=== PATIENT | female | born 1990 | race Caucasian/White ===

== ENCOUNTER 2017-03-01 20:15 | Emergency (ER) | payer OTHER ==
[2017-03-01] MEDS ORDERED: Ondansetron INJ* 2 MG/ML VIAL IV ONE (21:30)
[2017-03-01] MEDS ORDERED: Morphine INJ* 4 MG/ML 1 ML SYRINGE IV ONE (21:30)
[2017-03-01] MEDS ORDERED: NS 0.9% 1000 ML* 1,000 ML IV ONE (21:30)
[2017-03-01 21:56] LABS: Hematocrit 35 % (35-47); Hemoglobin 11.2 g/dl (12.0-16.0); Mean Corpuscular HGB Conc 32 g/dl (31-36); Mean Corpuscular Hemoglobin 25 pg (27-31); Mean Corpuscular Volume 78 fL (80-97); Mean Platelet Volume 8 um3 (7.4-10.4); Red Blood Count 4.43 10^6/ul (4.0-5.4); Red Cell Distribution Width 14 % (10.5-15); White Blood Count 5.3 10^3/ul (3.5-10.8)
[2017-03-01 22:13] LABS: Albumin 3.9 g/dL (3.2-5.2); BUN/Creatinine Ratio 17.4 (8-20); C Reactive Protein 4.17 mg/L (< 5.00); EGFR African American 100.3 (>60); Globulin 2.6 g/dL (2-4); Potassium 3.9 mmol/L (3.5-5.0); Total Bilirubin 0.3 mg/dL (0.2-1.0); Total Protein 6.5 g/dL (6.4-8.9)
[2017-03-01 23:33] LABS: Urine Bacteria Absent (Absent); Urine Bilirubin Negative (Negative); Urine Glucose Negative (Negative); Urine Nitrite Negative (Negative)
[2017-03-01] MEDS ORDERED: oxyCODONE/Acetamin 5/325 MG* TAB PO ONE (23:38)
[2017-03-02 00:03] VITALS: BP 143/74
--- NOTE | 2017-03-02 05:24 | ED ---
Moustapha Krishna Rebecca, scribed for Abraham May MD on 03/01/17 at 2129 . Abdominal Pain/Female - HPI Summary HPI Summary: Pt is a 27 y/o F who presents to ED c/o RUQ abd pain. Pain began tonight at 1700 and is currently moderate, previously severe, waxing and waning in intensity. Pain is in the RUQ with radiation to the back. Sx aggravated by deep breaths, alleviated by nothing. Additionally c/o nausea and diaphoresis secondary to pain. Denies fever, chills, dysuria, dark urine and vomiting. FHx gallbladder disease (mother had an attack after ). PSHx - January 15, 2017 and she is currently breast feeding. Pt additionally experienced an episode this morning at 0330, waking her up from sleep and had last eaten at 2100 prior to the episode. No similar episodes during . - History of Current Complaint Chief Complaint: EDAbdPain Stated Complaint: POSS GALLBLADDER ATTACK Hx Obtained From: Patient Hx Last Menstrual Period: 07/23/14 Onset/Duration: Lasting Hours - Since 1700, Still Present Severity Initially: Severe - 10/10 Severity Currently: Moderate Location: Discrete At: RUQ Radiates: Yes Radiates to: Back Aggravating Factor(s): Deep Breaths Alleviating Factor(s): Nothing Associated Signs and Symptoms: Positive: Diaphoresis - secondary to pain, Nausea. Negative: Fever, Urinary Symptoms, Vomiting Allergies/Adverse Reactions: Allergies Allergy/AdvReac Type Severity Reaction Status Date / Time Cefaclor [From [facility]] Allergy Hives Verified 03/01/17 21:10 PMH/Surg Hx/FS Hx/Imm Hx Endocrine/Hematology History: Denies: Hx Diabetes, Hx Thyroid Disease Cardiovascular History: Denies: Hx Hypertension Respiratory History: Denies: Hx Asthma, Hx Chronic Obstructive Pulmonary Disease (COPD) GI History: Denies: Hx Ulcer - Surgical History Surgery Procedure, Year, and Place: tear duct as a child - Immunization History Date of Tetanus Vaccine: unk Date of Influenza Vaccine: none Infectious Disease History: No Infectious Disease History: Denies: Hx Hepatitis, Hx Human Immunodeficiency Virus (HIV), Traveled Outside the [place] in Last 30 Days - Family History Known Family History: Positive: Hypertension, Other - Gallbladder disease - Social History Alcohol Use: Rare Substance Use Type: Reports: None Smoking Status (MU): Never Smoked Tobacco Review of Systems Positive: Skin Diaphoresis - secondary to pain. Negative: Fever, Chills Positive: Abdominal Pain - RUQ, Nausea. Negative: Vomiting Positive: other - NEGATIVE: dark urine. Negative: dysuria All Other Systems Reviewed And Are Negative: Yes Physical Exam - Summary Physical Exam Summary: The patient is well-nourished in no acute distress and in no acute pain. The skin is warm and dry and skin color reflects adequate perfusion. HEENT: The head is normocephalic and atraumatic. The pupils are equal and reactive. The conjunctivae are clear and without drainage. Sclera are clear. Nares are patent and without drainage. Mouth reveals moist mucous membranes and the throat is without erythema and exudate. The external ears are intact. The ear canals are patent and without drainage. The tympanic membranes are intact. Neck is supple with full range of motion and non-tender. There are no carotid bruits. There is no neck vein distension. Respiratory: Chest is non-tender. Lungs are clear to auscultation and breath sounds are symmetrical and equal. Cardiovascular: Hear is regular rate and rhythm. There is no murmur or rub auscultated. There is no peripheral edema and pulses are symmetrical and equal. Abdomen: The abdomen is obese and soft with RUQ pain. There is no epigastric, RLQ or LLQ pain. There are normal bowel sounds heard in all four quadrants and there is no organomegaly palpated. Musculoskeletal: Some questionable R CVA tenderness. Extremities are non-tender with full range of motion. There is good capillary refill. There is no peripheral edema or calf tenderness elicited. Neurological: Patient is alert and oriented to person, place and time. The patient has symmetrical motor strength in all four extremities. Psychiatric: The patient has an appropriate affect and does not exhibit any anxiety or depression. Triage Information Reviewed: Yes Vital Signs On Initial Exam: Initial Vitals Temp Pulse Resp BP Pulse Ox 99.1 F 66 18 170/93 98 03/01/17 20:26 03/01/17 20:26 03/01/17 20:26 03/01/17 20:26 03/01/17 20:26 Vital Signs Reviewed: Yes - Alonzo Coma Scale Coma Scale Total: 15 Diagnostics - Vital Signs Vital Signs Temp Pulse Resp BP Pulse Ox 03/01/17 21:07 99.4 F 60 16 151/81 96 03/01/17 20:26 99.1 F 66 18 170/93 98 - Laboratory Lab Results: Lab Results 03/01/17 03/01/17 03/01/17 Range/Units 21:45 21:45 21:45 WBC 5.3 (3.5-10.8) 10^3/ul RBC 4.43 (4.0-5.4) 10^6/ul Hgb 11.2 L (12.0-16.0) g/dl Hct 35 (35-47) % MCV 78 L (80-97) fL MCH 25 L (27-31) pg MCHC 32 (31-36) g/dl RDW 14 (10.5-15) % Plt Count 236 (150-450) 10^3/ul MPV 8 (7.4-10.4) um3 Neut % (Auto) 58.6 (38-83) % Lymph % (Auto) 31.0 (25-47) % Shannon % (Auto) 7.2 (1-9) % Eos % (Auto) 2.1 (0-6) % Baso % (Auto) 1.1 (0-2) % Absolute Neuts (auto) 3.1 (1.5-7.7) 10^3/ul Absolute Lymphs (auto) 1.6 (1.0-4.8) 10^3/ul Absolute Monos (auto) 0.4 (0-0.8) 10^3/ul Absolute Eos (auto) 0.1 (0-0.6) 10^3/ul Absolute Basos (auto) 0.1 (0-0.2) 10^3/ul Absolute Nucleated RBC 0.01 10^3/ul Nucleated RBC % 0.1 Sodium 134 (133-145) mmol/L Potassium 3.9 (3.5-5.0) mmol/L Chloride 103 (101-111) mmol/L Carbon Dioxide 25 (22-32) mmol/L Anion Gap 6 (2-11) mmol/L BUN 15 (6-24) mg/dL Creatinine 0.86 (0.51-0.95) mg/dL Est GFR ( Amer) 100.3 (>60) Est GFR (Non-Af Amer) 78.0 (>60) BUN/Creatinine Ratio 17.4 (8-20) Glucose 113 H (70-100) mg/dL Lactic Acid 1.2 (0.5-2.0) mmol/L Calcium 9.0 (8.6-10.3) mg/dL Total Bilirubin 0.30 (0.2-1.0) mg/dL AST 23 (13-39) U/L ALT 28 (7-52) U/L Alkaline Phosphatase 52 (34-104) U/L C-Reactive Protein 4.17 (< 5.00) mg/L Total Protein 6.5 (6.4-8.9) g/dL Albumin 3.9 (3.2-5.2) g/dL Globulin 2.6 (2-4) g/dL Albumin/Globulin Ratio 1.5 (1-3) Amylase 19 L (29-103) U/L Lipase 17 (11.0-82.0) U/L Urine Color Urine Appearance Urine pH (5-9) Ur Specific [place] (1.010-1.030) Urine Protein (Negative) Urine Ketones (Negative) Urine Blood (Negative) Urine Nitrate (Negative) Urine Bilirubin (Negative) Urine Urobilinogen (Negative) Ur Leukocyte Esterase (Negative) Urine WBC (Auto) (Absent) Urine RBC (Auto) (Absent) Ur Squamous Epith Cells (Absent) Urine Bacteria (Absent) Urine Glucose (Negative) 03/01/ Range/Units 23:15 WBC (3.5-10.8) 10^3/ul RBC (4.0-5.4) 10^6/ul Hgb (12.0-16.0) g/dl Hct (35-47) % MCV (80-97) fL MCH (27-31) pg MCHC (31-36) g/dl RDW (10.5-15) % Plt Count (150-450) 10^3/ul MPV (7.4-10.4) um3 Neut % (Auto) (38-83) % Lymph % (Auto) (25-47) % Shannon % (Auto) (1-9) % Eos % (Auto) (0-6) % Baso % (Auto) (0-2) % Absolute Neuts (auto) (1.5-7.7) 10^3/ul Absolute Lymphs (auto) (1.0-4.8) 10^3/ul Absolute Monos (auto) (0-0.8) 10^3/ul Absolute Eos (auto) (0-0.6) 10^3/ul Absolute Basos (auto) (0-0.2) 10^3/ul Absolute Nucleated RBC 10^3/ul Nucleated RBC % Sodium (133-145) mmol/L Potassium (3.5-5.0) mmol/L Chloride (101-111) mmol/L Carbon Dioxide (22-32) mmol/L Anion Gap (2-11) mmol/L BUN (6-24) mg/dL Creatinine (0.51-0.95) mg/dL Est GFR ( Amer) (>60) Est GFR (Non-Af Amer) (>60) BUN/Creatinine Ratio (8-20) Glucose (70-100) mg/dL Lactic Acid (0.5-2.0) mmol/L Calcium (8.6-10.3) mg/dL Total Bilirubin (0.2-1.0) mg/dL AST (13-39) U/L ALT (7-52) U/L Alkaline Phosphatase (34-104) U/L C-Reactive Protein (< 5.00) mg/L Total Protein (6.4-8.9) g/dL Albumin (3.2-5.2) g/dL Globulin (2-4) g/dL Albumin/Globulin Ratio (1-3) Amylase (29-103) U/L Lipase (11.0-82.0) U/L Urine Color Yellow Urine Appearance Clear Urine pH 6.0 (5-9) Ur Specific [place] 1.008 L (1.010-1.030) Urine Protein Negative (Negative) Urine Ketones Negative (Negative) Urine Blood 1+ H (Negative) Urine Nitrate Negative (Negative) Urine Bilirubin Negative (Negative) Urine Urobilinogen Negative (Negative) Ur Leukocyte Esterase 2+ H (Negative) Urine WBC (Auto) 1+(6-10/hpf) H (Absent) Urine RBC (Auto) Trace(0-2/hpf) (Absent) Ur Squamous Epith Cells Present H (Absent) Urine Bacteria Absent (Absent) Urine Glucose Negative (Negative) Result Diagrams: 03/01/17 21:45 03/01/17 21:45 Lab Statement: Any lab studies that have been ordered have been reviewed, and results considered in the medical decision making process. - Ultrasound No standard instances Ultrasound Interpretation: Positive (See Comments) - US abdomen: Cholelithiasis without acute cholecystitis. Hepatomegaly. Coarse liver echotexture, probably steatosis. unremarkable right kidney and visualized aorta and pancreas. No biliary dilatation. Ultrasound Interpretation Completed By: Radiologist Re-Evaluation - Re-Evaluation First Eval Re-Evaluation Time: 23:30 Change: Improved Comment: Discussed US and lab results with the pt. She is feeling better. Abdominal Pain Fem Course/Dx - Course Course Of Treatment: Pt is a 27 y/o F who presents to ED c/o RUQ abd pain. Pain began tonight at 1700 and is currently moderate, previously severe, waxing and waning in intensity. Pain is in the RUQ with radiation to the back. Sx aggravated by deep breaths, alleviated by nothing. Additionally c/o nausea and diaphoresis secondary to pain. Denies fever, chills, dysuria, dark urine and vomiting. FHx gallbladder disease (mother had an attack after ). PSHx C -section - January 15, 2017 and she is currently breast feeding. Pt additionally experienced an episode this morning at 0330, waking her up from sleep and had last eaten at 2100 prior to the episode. No similar episodes during . US abdomen reveals: Cholelithiasis without acute cholecystitis. Hepatomegaly. Coarse liver echotexture, probably steatosis. unremarkable right kidney and visualized aorta and pancreas. No biliary dilatation. In the ED course, pt was administered fluids, Morphine, Zofran and Percocet 5/325 which improved sx. She will be D/C to home with Dx of cholelithiasis, Rx for Percocet 5/325 and a follow up with Dr. Shaikh this week. She understands and agrees. Elevated BP noted and advised to f/u with PCP. - Diagnoses Differential Diagnosis: Positive: Gall Bladder Disease, Urinary Tract Infection Provider Diagnoses: Cholelithiasis Discharge - Discharge Plan Condition: Stable Disposition: HOME Prescriptions: oxyCODONE/Acetamin 5/325 MG* [Percocet 5/325 TAB*] 1 tab PO Q6H PRN #16 tab MDD 4 PRN Reason: pain Patient Education Materials: Gallstones (ED) Referrals: Morgan Shaikh MD [Medical Doctor] - (Follow up with Dr. Shaikh this week. ) The documentation as recorded by the Moustapha lacy Rebecca accurately reflects the service I personally performed and the decisions made by me, Abraham May MD.
--- NOTE | 2017-03-02 07:44 | RAD ---
HISTORY: Right upper quadrant and back pain COMPARISONS: None TECHNIQUE: Multiple transverse and longitudinal ultrasound images were obtained of the right upper quadrant of the abdomen using grayscale and color Doppler imaging. FINDINGS: LIVER: The liver is diffusely echogenic and coarse in echotexture, with decreased acoustic transmission. The liver measures 22 cm in long axis.. There is normal hepatopedal flow of the portal vein on Doppler imaging. BILIARY TREE: There is no intrahepatic or extrahepatic biliary dilatation. The common duct measures 0.5 cm. GALLBLADDER: The gallbladder is distended. Multiple shadowing echogenic foci consistent with gallstones are noted. There is no gallbladder wall thickening, pericholecystic fluid, or sonographic Aiken sign. PANCREAS: The head of the pancreas is unremarkable. The tail of the pancreas is not well visualized secondary to overlying bowel gas. RIGHT KIDNEY: The right kidney is normal in shape, size, contour, and echogenicity. There is no hydronephrosis or nephrolithiasis. The right kidney measures 10.8 x 5.1 x 4.7 cm. AORTA AND IVC: The aorta and IVC are unremarkable. FLUID: There are no pleural effusions. There is no free fluid within the hepatorenal recess. OTHER FINDINGS: None. IMPRESSION: 1. CHOLELITHIASIS, WITHOUT SONOGRAPHIC FEATURES OF ACUTE CHOLECYSTITIS. 2. HEPATOMEGALY WITH FATTY INFILTRATION OF THE LIVER
== END 2017-03-01 23:48 | disposition home or self-care (01) ==
LOC: ED 20:15
DX: K80.20 Calculus of gallbladder without cholecystitis without obstruction (principal); K76.0 Fatty (change of) liver, not elsewhere classified; R11.0 Nausea; R61 Generalized hyperhidrosis; Z88.1 Allergy status to other antibiotic agents
CPT/HCPCS: 36415; 76705; 80053; 81003; 81015; 82150; 83605; 83690; 85025; 86140; 87086; 96374; 96375; 99282; J2270; J2405

== ENCOUNTER 2017-06-09 10:34 | Day surgery (SDC) | payer OTHER ==
--- NOTE | 2017-06-03 19:21 | HP ---
CC: [facility] * ADMISSION HISTORY AND PHYSICAL: DATE OF ADMISSION: Will be 06/09/17 ATTENDING SURGEON: Dr. Morgan Shaikh.* (DICTATED BY ANDREW DELGADO) CHIEF COMPLAINT: Gallstones with biliary colic. HISTORY OF PRESENT ILLNESS: This is a 27-year-old morbidly obese female, who after recent ( delivery on 01/15/17) experienced an attack of pain. This actually occurred in February. She was awakened from sleep and reported right subscapular pain with associated nausea and indigestion. Symptoms abated only to return again within 24 hours. She presented to the emergency department at which time, CBC was normal other than slightly decreased hemoglobin of 11.2. I am not sure if liver function tests were drawn at that point. An ultrasound was done on 03/01/17 showing increased echogenicity of the liver consistent with fatty infiltration. There are multiple shadowing echogenic foci consistent with gallstones. However, there was no gallbladder wall thickening, pericholecystic fluid, or sonographic Aiken 's sign. The patient was seen in the office by Dr. Shaikh on 03/04/17. She has only had one additional minor episode of pain on 05/31/17. She has had weight loss of approximately 50 pounds prior to and 38 pounds during the , which was monitored. She has had normal color of stool and urine throughout the course. Her family history is positive for gallbladder disease. She was seen in the office by Dr. Shaikh on 03/04/17. The patient was examined and her diagnostic studies were reviewed. He felt that her symptoms were consistent with biliary colic secondary to gallstones and recommended laparoscopic cholecystectomy. She understands the indications for surgery, the risks, benefits, and alternatives. She is anxious about surgery and was prescribed Xanax 0.5 mg to be taken at h.s. the night prior to surgery and the morning of surgery with a sip of water p.r.n. and if cleared by Anesthesia. She would like to proceed as scheduled with laparoscopic cholecystectomy. PAST MEDICAL HISTORY: Unremarkable for any significant past medical problems other than her morbid obesity. 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 PAST SURGICAL HISTORY: Her only previous surgeries are lacrimal duct surgery as a child and x1 via low transverse incision. CURRENT MEDICATIONS: 1. vitamins. 2. Moringa (supplement). ALLERGIES: CECLOR (hives), (the patient has tolerated penicillin without any problem). FAMILY HISTORY: Positive for PE in both her cousin and maternal grandmother, though no first-degree relatives. No family history of problems with bleeding or general anesthesia. SOCIAL HISTORY: The patient is . She has 1 child. She works at a daycare facility. She did smoke in her teenage years and early 20s, but not since then. She drinks up to 2 drinks per week. She denies other drug use. REVIEW OF SYSTEMS: General: No recent constitutional symptoms or acute illnesses other than described in the HPI. As noted above, she is currently nursing. Cardiovascular: No chest pain, palpitations, history of hypertension, or heart murmur. Respiratory: No history of asthma, chronic cough, or shortness of breath. GI: As above per HPI. No lower GI symptoms. : No problems reported. 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 Her Pap smear 1 year ago was normal by her report. Endocrine: No diabetes or thyroid dysfunction. PHYSICAL EXAMINATION GENERAL: Well-nourished, morbidly obese female, in no acute distress. VITAL SIGNS: Height 5 feet, weight 312 pounds, blood pressure 138/88, pulse 74 , respirations 16. HEENT: Pupils are equal, round, and reactive. EOMs intact. No conjunctival pallor or scleral icterus. Oropharynx: Teeth in good repair. No intraoral lesions. NECK: No lymphadenopathy, thyromegaly, or masses. LUNGS: Clear to auscultation. No wheezes. HEART: Regular rate and rhythm. No murmur noted. BREASTS: Not examined. ABDOMEN: Morbidly obese, soft, nontender to palpation. No palpable masses or organomegaly, though exam is limited by body habitus. BACK: No spinous process or CVA tenderness. EXTREMITIES: No edema. NEUROLOGICAL: Grossly intact. SKIN: Warm and dry. No suspicious rashes or lesions noted. IMPRESSION: Symptomatic cholelithiasis. PLAN: Laparoscopic cholecystectomy. ANDREW DELGADO [id number]/[facility] #: [id number] [facility]
[~2017-06-09 10:34] MED LIST: Buffered Lidocaine 0.9% SYRIN* 5 ML/SYR SYRINGE INTRADERM ONE; Clindamycin 900 MG IVPREMIX(* 900 MG/50 ML SDV IV ONE; D5W IVPB ONE; Famotidine IV* 10 MG/ML 2 ML (20 mg) IV ONE; GENTAMICIN ADULT IVPB ONE; Oxymetazoline 0.05% NASAL SPR* 15 ML BTL BOTH NARES ONE
[2017-06-09] MEDS ORDERED: Oxymetazoline 0.05% NASAL SPR* 15 ML BTL ONE (10:47)
[2017-06-09] MEDS ORDERED: Famotidine IV* 10 MG/ML 2 ML (20 mg) ONE (10:47)
[2017-06-09] MEDS ORDERED: Clindamycin 900 MG IVPREMIX(* 900 MG/50 ML SDV IV ONE (10:47)
[2017-06-09] MEDS ORDERED: Buffered Lidocaine 0.9% SYRIN* 5 ML/SYR SYRINGE ONE (10:48)
[2017-06-09] MEDS ORDERED: Midazolam* 1 MG/ML 10 ML VIAL (10 MG) ONE (10:52)
[2017-06-09] MEDS ORDERED: fentaNYL* 50 MCG/ML 2 ML VIAL (100 MCG VIAL) ONE ×3 (10:52→14:10)
[2017-06-09] MEDS ORDERED: Heparin VIAL(*) 5000 UNITS/ML VIAL (FIVE THOUSAND) ONE (12:31)
[2017-06-09] MEDS ORDERED: Bupivacaine 0.25% SDV* 30 ML ONE (12:56)
[2017-06-09] MEDS ORDERED: Ondansetron INJ* 2 MG/ML VIAL ONE (13:05)
[2017-06-09] MEDS ORDERED: Dexamethasone IV* 4 MG/ML 1 ML (4 MG) ONE (13:05)
[2017-06-09] MEDS ORDERED: Lidocaine 2% PF * 5 ML VIAL ONE (13:05)
[2017-06-09] MEDS ORDERED: DiMENhydriNATE IV* 50 MG/ML VIAL ONE (13:05)
[2017-06-09] MEDS ORDERED: Ketorolac INJ* 30 MG/ML 1 ML VIAL ONE (13:05)
[2017-06-09] MEDS ORDERED: Propofol* 10 MG/ML 20 ML BTL IV PUSH ONE (13:05)
[2017-06-09] MEDS ORDERED: Rocuronium* 10 MG/ML VIAL ONE ×2 (13:06→13:13)
[2017-06-09] MEDS ORDERED: Acetaminophen IV 1GM/100ML * 1,000 MG/100 ML VIAL IVPB ONE (14:17)
[2017-06-09] MEDS ORDERED: DiMENhydriNATE IV* 50 MG/ML VIAL IV PUSH PRN (14:17)
[2017-06-09] MEDS ORDERED: oxyCODONE TAB* 5 MG TAB PO PRN (14:17)
[2017-06-09] MEDS ORDERED: oxyCODONE/Acetamin 5/325 MG* TAB PO PRN (14:45)
[2017-06-09] MEDS ORDERED: Acetaminophen IV 1GM/100ML * 100 ML ONE (14:46)
[2017-06-09] MEDS ORDERED: HYDROmorphone INJ* 1 MG/ML CARPUJECT SYRINGE ONE (15:02)
[2017-06-09] MEDS: HYDROmorphone INJ* 1 MG/ML CARPUJECT SYRINGE IV PRN ×2 (15:04→15:15)
[2017-06-09] MEDS ORDERED: oxyCODONE TAB* 5 MG TAB ONE (15:17)
[2017-06-09 15:39] VITALS: BP 150/91
--- NOTE | 2017-06-10 04:28 | OP ---
DATE OF OPERATION: 06/09/17 [facility] DATE OF : 86 SURGEON: Morgan Shaikh MD. GASOLINE PUMP INSTALLER: ANDREW Ly. ANESTHESIOLOGIST: Ami Cosme MD. ANESTHESIA: General endotracheal. PRE-OP DIAGNOSIS: Symptomatic cholelithiasis. POST-OP DIAGNOSIS: Symptomatic cholelithiasis. OPERATIVE PROCEDURE: Laparoscopic cholecystectomy. ESTIMATED BLOOD LOSS: Minimal. IV FLUIDS: Crystalloid. SPECIMENS: Gallbladder. DRAINS: None. COMPLICATIONS: None. COUNTS: The instrument, needle, and sponge counts were correct. DESCRIPTION OF PROCEDURE: The patient was brought to the operating room and placed on the table supine. Sequential compression devices were placed on both lower extremities. General anesthesia was administered. She was positioned and padded appropriately. She was prepped and draped in the usual sterile fashion. She received appropriate intravenous antibiotics. Time-out was performed. Local anesthetic was infiltrated into the skin and soft tissue prior to making each incision. Entry into the abdomen was through a right upper quadrant incision accommodating a 5-mm optical trocar. After accessing the peritoneal cavity, carbon dioxide was insufflated to a pressure 15 mmHg. Under direct visualization, a 5-mm trocar was placed in the supraumbilical region, just to the right of midline, and a third 5-mm trocar placed in the right upper quadrant laterally. A 12-mm trocar was placed in the subxiphoid position. The patient was noted to have findings consistent with fatty liver. The liver was enlarged. The gallbladder demonstrated no acute changes. The gallbladder fundus was grasped and retracted superiorly and the peritoneum investing the gallbladder was incised sharply along the medial and lateral aspects of the gallbladder and then dissection proceeded medial to lateral, identifying the cystic artery and cystic duct. Critical view was obtained. The artery and duct were each doubly clipped and divided. The gallbladder was then freed from its attachments to the liver bed using the cautery with a combination of sharp dissection and hook dissection. Once the gallbladder was free, it was placed to a retrieval bag and retrieved through the subxiphoid port site. Hemostasis was assured. The clips were noted to be intact. The ports were removed under direct visualization and carbon dioxide was released. The skin was closed with 4-0 Monocryl in subcuticular fashion and Steri-Strips were applied. The patient tolerated the procedure well. She was extubated and transported to the recovery room in a stable condition. [id number]/[facility] #: [id number] ENRIQUE
== END 2017-06-09 16:15 | disposition home or self-care (01) ==
LOC: OR 10:34
PROVIDERS: ATTEND Surgery
DX: K80.10 Calculus of gallbladder with chronic cholecystitis without obstruction (principal); Z87.891 Personal history of nicotine dependence; Z88.1 Allergy status to other antibiotic agents
CPT/HCPCS: 81025; 88304; A9270-GY; J1100; J1170; J1240; J1580; J1644; J1885; J2250; J2405; J2704; J3010